=== PATIENT | female | born 1995 | race Caucasian/White ===

== ENCOUNTER 2017-10-11 10:08 | Emergency (ER) | payer MEDICAID ==
[~2017-10-11] VITALS: Ht 165.1 cm; Wt 56.7 kg
[2017-10-11 10:13] VITALS: Ht 165.1 cm; Wt 56.7 kg
[2017-10-11 11:46] LABS: BASOPHIL % 0.6 % (0-2); PLATELET COUNT 249 x10^3mcL (130-400)
[2017-10-11 11:49] LABS: RED CELL DISTRIBUTION WIDTH 15.4 % (11.5-14.5)
[2017-10-11 12:07] VITALS: BP 128/71
== END 2017-10-11 12:07 | disposition home or self-care (01) ==
LOC: ED 10:08
PROVIDERS: Emergency Medicine
DX: N93.8 Other specified abnormal uterine and vaginal bleeding (principal)